=== PATIENT | male | born 1960 | race Caucasian/White ===

== ENCOUNTER 2018-09-24 19:18 | Emergency (ER) | payer SELFPAY ==
[~2018-09-24] VITALS: Ht 167.6 cm; Wt 77.1 kg
[2018-09-24 19:18] VITALS: BP 137/83
--- NOTE | 2018-09-24 19:18 | NUR ---
PT ERIK BLS. TAKEN TO BED 2
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
--- NOTE | 2018-09-24 19:51 | NUR ---
Dr. Ramos evaluating patient at bedside.
[2018-09-24] MEDS ORDERED: CYCLOBENZAPRINE 10 MG TAB PO ONE (19:55)
[2018-09-24] MEDS ORDERED: IBUPROFEN 600 MG TAB PO ONE (19:55)
[2018-09-24] MEDS ORDERED: IBUPROFEN 200 MG TAB PO ONE (20:15)
--- NOTE | 2018-09-24 20:24 | NUR ---
PT TAKEN TO X-RAY VIA WHEELCHAIR BY TECH.
[2018-09-24] MEDS ORDERED: IBUPROFEN 400 MG TAB ONE (20:30)
--- NOTE | 2018-09-24 20:38 | NUR ---
PT RETURN FROM XRAY
--- NOTE | 2018-09-24 21:10 | NUR ---
PT STATES PAIN TO LEFT SIDE OF FACE AND HEAD, 9/10 ACHING PAIN. ER MD AWARE. ORDER TO FOLLOW.
[2018-09-24] MEDS ORDERED: HYDROcodone/APAP 5/325 MG 1 TAB TAB PO ONE (21:15)
--- NOTE | 2018-09-24 21:16 | NUR ---
PT TAKEN TO CT VIA WHEELCHAIR BY TECH. Addendum: 09/24/18 at 2117 by [email or web address] PT TAKEN TO CT VIA NANIRNEY BY Sensorist.
--- NOTE | 2018-09-24 22:00 | NUR ---
Patient discharged with v/s stable. Written and verbal after care instructions given and explained. Patient alert, oriented and verbalized understanding of instructions. Ambulatory with steady gait. All questions addressed prior to discharge. ID band removed. Patient advised to follow up with PMD. Rx of ibuprofen and flexeril was given. Patient educated on indication of medication including possible reaction and side effects. Opportunity to ask questions provided and answered.
[2018-09-24 22:07] VITALS: BP 158/98
== END 2018-09-24 22:00 | disposition home or self-care (01) ==
LOC: MED 19:18
DX: S39.012A Strain of muscle, fascia and tendon of lower back, initial encounter (principal); R51 Headache; V89.2XXA Person injured in unspecified motor-vehicle accident, traffic, initial encounter; Y93.89 Activity, other specified; Y92.89 Other specified places as the place of occurrence of the external cause; Y99.8 Other external cause status
CPT/HCPCS: 70450; 72110; 99284

== ENCOUNTER 2021-09-13 09:45 | Emergency (ER) | payer SELFPAY ==
[~2021-09-13] VITALS: Ht 167.6 cm; Wt 76.7 kg
[2021-09-13 09:51] VITALS: BP 147/84
[2021-09-13 11:11] LABS: BASOPHILS # (AUTO) 0.1 K/uL (0.00-0.22); BASOPHILS % (AUTO) 0.7 % (0.0-2.0); EOSINOPHILS # (AUTO) 0.1 K/uL (0-0.4); EOSINOPHILS % (AUTO) 1.5 % (0.0-4.0); HEMATOCRIT 43.5 % (36-52); HEMOGLOBIN 14.7 g/dL (12.0-18.0); LYMPHOCYTES # (AUTO) 2.2 K/uL (2.0-11.5); LYMPHOCYTES % (AUTO) 28.9 % (20.5-51.1); MEAN CORPUSCULAR HEMOGLOBIN 30 pg (27-31); MEAN CORPUSCULAR HGB CONC 34 g/dL (33-37); MEAN CORPUSCULAR VOLUME 89.9 fL (80-94); MONOCYTES # (AUTO) 0.8 K/uL (0.8-1.0); MONOCYTES % (AUTO) 10.2 % (1.7-9.3); NEUTROPHILS # (AUTO) 4.4 K/uL (1.8-7.7); NEUTROPHILS % (AUTO) 58.7 % (42.2-75.2); PLATELET COUNT (AUTO) 274 K/uL (140-450); RED BLOOD CELL COUNT(AUTO) 4.84 MIL/uL (4.20-6.10); RED CELL DISTRIBUTION WIDTH 14.5 % (11.6-13.7); WHITE BLOOD COUNT (AUTO) 7.6 K/uL (4.8-10.8)
[2021-09-13 11:27] LABS: ALBUMIN 3.6 g/dL (3.4-5.0); ANION GAP 13.2 (8-16); CARBON DIOXIDE 27.9 mmol/L (21-32); CREATININE 0.9 mg/dL (0.6-1.3); POTASSIUM 4.1 mmol/L (3.5-5.1); TOTAL BILIRUBIN 0.5 mg/dL (0.0-1.0)
[2021-09-13] MEDS ORDERED: ACET-8386 PO (11:39)
[2021-09-13] MEDS ORDERED: NAPR-1704 PO (11:39)
[2021-09-13] MEDS ORDERED: ACYC400T14 PO (11:39)
--- NOTE | 2021-09-13 11:52 | NUR ---
Zenaida cotter in [facility] - 09/13/21 at 1154 by PHSEP PT LEFT BEFORE DISCHARGE AND W/O DISCHARGE PAPERS
--- NOTE | 2021-09-13 11:54 | NUR ---
Patient discharged with v/s stable. Written and verbal after care ABOUT SHINGLES instructions given and explained. Patient alert, oriented and verbalized understanding of instructions. Ambulatory with steady gait. All questions addressed prior to discharge. ID band removed. Patient advised to follow up with PMD. Rx of ACYCLOVIR, NAPROXEN, AND HYDROCODONE given. Opportunity to ask questions provided and answered. NO NURSING CARE RENDERED.
--- NOTE | 2021-09-13 11:55 | NUR ---
Chart checked and completed. The patient's care was reviewed and supervised by Emma Smith RN.
== END 2021-09-13 11:54 | disposition home or self-care (01) ==
LOC: MED 09:45
DX: B02.9 Zoster without complications (principal)
CPT/HCPCS: 36415; 80053; 83690; 85025; 99283